=== PATIENT | male | born 1970 | race Caucasian/White ===

== ENCOUNTER 2022-12-28 05:57 | Emergency (ER) | payer SELFPAY ==
[2022-12-28] MEDS ORDERED: Fluorescein 1 MG Ophth Strip EYEBOTH ONE (06:13)
[2022-12-28] MEDS ORDERED: Proparacaine 0.5% Ophth Soln 15 ML Bottle EYEBOTH STA (06:13)
[2022-12-28] MEDS ORDERED: Diphtheria,Pertussis(Acell),Tetanus Vaccine 0.5 ML Syringe IM ONE (07:26)
[2022-12-28] MEDS ORDERED: Acetaminophen/HYDROcodone 325-10 MG Tab PO ONE (07:26)
[2022-12-28] MEDS ORDERED: Erythromycin Base 0.5% Ophth Oint 1 GM Tube EYEBOTH ONE (07:43)
== END 2022-12-28 08:21 | disposition home or self-care (01) ==
LOC: JD.ED 05:57
DX: T20.10XA Burn of first degree of head, face, and neck, unspecified site, initial encounter (principal)
CPT/HCPCS: 71045; 90471; 90715; 99283; A9270; J3490